=== PATIENT | male | born 1975 | race Two or more races ===

== ENCOUNTER 2024-09-09 06:38 | Emergency (ER) | payer MEDICAID, SELFPAY ==
[2024-09-09 06:39] VITALS: BMI 26.6
[2024-09-09 07:14] VITALS: BP 137/89; PULSE 88; RESP 17; TEMP 36.9; O2SAT 97
--- NOTE | 2024-09-09 07:35 | PD.EDEPIST ---
ED Epistaxis RME/HPI General Chief complaint: Epistaxis/Nasal Foreign Body Stated complaint: NOSE BLEED Time Seen by Provider: 09/09/24 07:17 Arrival date/time: 09/09/24 06:38 RME / HPI RME / HPI Narrative: 49-year-old male patient presents emergency department with complaint of left side epistaxis for the past 2 days. Patient denies history of similar. Patient admits to tobacco use. Patient denies any trauma. Patient denies headache patient denies high blood pressure. Epistaxis improved with pressure applied to his nostril. Related Data Home Medications ?Medication ?Instructions ?Recorded ?Confirmed No Known Home Medications 03/18/19 03/18/19 Allergies Allergy/AdvReac Type Severity Reaction Status Date / Time No Known Allergies Allergy Verified 09/09/24 06:40 Review of Systems Review of Systems Systems Reviewed: All systems reviewed, normal except as documented Constitutional Constitutional: Reports system reviewed and no additional complaints, except as documented ENT Ears, Nose, Mouth, and Throat: Reports system reviewed and no additional complaints, except as documented Cardiovascular Cardiovascular: Reports system reviewed and no additional complaints, except as documented Respiratory Respiratory: Reports system reviewed and no additional complaints, except as documented Gastrointestinal Gastrointestinal: Reports system reviewed and no additional complaints, except as documented Genitourinary Genitourinary: Reports system reviewed and no additional complaints, except as documented Musculoskeletal Musculoskeletal: Reports system reviewed and no additional complaints, except as documented Neurologic Neurologic: Reports system reviewed and no additional complaints, except as documented Psychiatric Psychiatric: Reports system reviewed and no additional complaints, except as documented ED Exam General General appearance: Present alert and in no apparent distress Head Head exam: Present atraumatic and normocephalic ENT ENT exam: Present normal exam and normal oropharynx Expanded ENT Exam Nose exam: Present other (bleeding from left nostril); Absent sinus tenderness, nasal deviation or crepitus Respiratory Respiratory exam: Present normal lung sounds bilaterally Cardiovascular Cardiovascular exam: Present regular rate and normal rhythm Extremities Exam Extremities exam: Present normal inspection Neurological Exam Neurological exam: Present alert and oriented X3 Course Quality Measures none Orders Category Date Time Status CBC Stat Lab 09/09/24 07:45 Completed CMP [Comprehensive Metabolic Panel] Stat Lab 09/09/24 07:45 Completed Lipase Stat Lab 09/09/24 07:45 Completed PT [Prothrombin Time with INR] Stat Lab 09/09/24 07:45 Completed Oxymetazoline [place] 0.05% [Afrin Nasal [place]] Med 09/09/24 07:34 Discontinued See Dose Instructions NASAL X1 ONE Vital Signs Vital signs: Vital Signs Temperature 98.4 F 09/09/24 07:14 Pulse Rate 88 09/09/24 07:14 Respiratory Rate 17 09/09/24 07:14 Blood Pressure 137/89 H 09/09/24 07:14 Pulse Oximetry (%) 97 09/09/24 07:14 Oxygen Delivery Method Room Air 09/09/24 07:14 Epistaxis MDM Narrative MDM Narrative:: 49-year-old patient presents emergency department with complaint of bleeding to the left nostril. Patient denies ever having nosebleeds. Attest to tobacco use. Blood work negative for anemia needing transfusion. PT is within normal limit. Patient data External records reviewed:: None Clinical information provided by:: patient Social determinants that could affect healthcare access:: none Patient has the following chronic illnesses:: na How is presenting disease/condition affected by chronic disease/condition?: no chronic disease Evaluation data The following diagnostics were reviewed and interpreted by me:: lab results Lab and/or radiology exams considered but not ordered:: Lab considered and ordered Interpretation Summary: Unremarkable lab Medications / Prescriptions Medications or Prescriptions considered but not ordered:: Afrin considered and ordered Medication administrations:: Medication Administration History Discontinued Medications Oxymetazoline HCl (Oxymetazoline [place] 0.05% 15 Ml Btl) 0 spray NASAL X1 ONE Stop: 09/09/24 07:35 Last Admin: 09/09/24 08:11 Dose: 2 spray Documented By: DO Per above Consultations Consultation(s) initiated? (list below): No Diagnosis Epistaxis Differential Diagnosis: nasal bone fracture, anterior epistaxis and posterior epistaxis Most likely diagnosis given after review of the tests above:: Anterior epistaxis Admission Indicated Admission indicated?: not indicated Admission Request Was there a request for admission?: No Disposition Plan Disposition Plan: Discharge Discharge Attestation Discharge Attestation: The patient and all family members were given an opportunity to ask questions and understood the discharge instructions. Discharge instructions specifically effects, indications for sooner follow up or return to the emergency department, and the expected course of current diagnosis. Patient condition: Stable Discharge Plan Plan Patient Disposition: HOME (Self Care) Prescriptions/Referrals Prescriptions/Med Rec: No Action No Known Home Medications Referrals: Herman Kat MD [Primary Care Provider] - In 1 week Problem List Clinical Impression: Epistaxis Patient/Caregiver Discharge Instructions Education Materials: ED Epistaxis (Adult) Print Language: Czech Stand Alone Forms: [facility] Award Info., Patient Portal Info Letter
[2024-09-09] MEDS: OXYMETAZOLINE NAS SPRY 0.05% 15 ML BTL NASAL (08:11)
[2024-09-09 08:14] LABS: Basophils # (Auto) 0.1 Thou/mm3 (0.0-0.2); Basophils % (Auto) 1 % (0-2.5); Eosinophils # (Auto) 0.1 Thou/mm3 (0.0-0.5); Eosinophils % (Auto) 1 % (0-10); Hematocrit 36.9 % (41.0-53.0); Hemoglobin 12.6 g/dL (13.5-16.0); Immature Granulocytes % (Auto) 0 % (0-0); Immature Granulocytes Auto 0.04 Thou/mm3 (0.00-0.00); Lymphocytes # (Auto) 1.8 Thou/mm3 (1.0-4.8); Lymphocytes % (Auto) 18 % (10-50); Mean Corpuscular HGB Conc 34.1 g/dl (31.0-37.0); Mean Corpuscular Hemoglobin 30.5 pg (25.0-35.0); Mean Corpuscular Volume 89 fL (80-100); Monocytes # (Auto) 0.9 Thou/mm3 (0.0-0.8); Monocytes % (Auto) 9 % (0-12); Neutrophils # (Auto) 7.1 Thou/mm3 (1.8-7.7); Neutrophils % (Auto) 71 % (37-80); Nucleated Red Blood Cell % 0 /100 WBC (0); Platelet Count 412 Thou/mm3 (140-440); RDW Standard Deviation 42.9 fL (35.1-43.9); Red Blood Count 4.13 Miln/mm3 (4.50-5.90)
[2024-09-09 08:15] LABS: Alanine Aminotransferase 25 U/L (10-49); Albumin, Serum 4.3 gm/dL (3.5-5.0); Albumin/Globulin Ratio 1.7 (1.2-2.2); Alkaline Phosphatase 83 U/L (46-116); Anion Gap 6 (7-16); Aspartate Amino Transferase 33 U/L (0-34); BUN/Creatinine Ratio 18 Ratio (12-20); Bilirubin,Total 0.2 mg/dL (0.3-1.2); Blood Urea Nitrogen 14 mg/dL (9-23); Calcium 9.2 mg/dL (8.3-10.6); Calcium (Corrected) 9.2 mg/dL (8.5-10.1); Carbon Dioxide 24.3 mMol/L (20.0-31.0); Chloride 107 mMol/L (98-107); Creatinine (Component) 0.8 mg/dL (0.6-1.3); Estimated Creatinine Clearance 100.8 mL/min (>60); Globulin 2.5 gm/dL (2.3-3.5); Glucose 118 mg/dL (74-106); Lipase 33 U/L (12-53); Osmolality,Calculated 275 (275-295); Potassium 4.3 mMol/L (3.4-5.1); Sodium 137 mMol/L (136-145); Total Protein 6.8 gm/dL (5.7-8.2); eGFR > 60 See Note
[2024-09-09 08:45] LABS: INR 0.9 (0.9-1.3); Prothrombin Time 10.1 Seconds (9.0-12.2)
== END 2024-09-09 10:14 | disposition home or self-care (01) ==
PROVIDERS: Physician Assistant; Emergency Provider Emergency Medicine; PCP Family Medicine
DX: R04.0 Epistaxis (principal)
CPT/HCPCS: 36415; 80053; 83690; 85025; 85610; 99283; A9270

== ENCOUNTER 2024-09-10 17:57 | Emergency (ER) | payer MEDICAID, SELFPAY ==
[2024-09-10 17:58] VITALS: BMI 26.6
[2024-09-10 18:10] VITALS: BP 135/98; PULSE 104; RESP 16; TEMP 36.8; O2SAT 99
--- NOTE | 2024-09-10 18:26 | EDNOTE_ITS ---
ED Epistaxis RME/HPI General Chief complaint: Epistaxis/Nasal Foreign Body Stated complaint: epitaxis Time Seen by Provider: 09/10/24 18:08 Source: patient Arrival date/time: 09/10/24 17:57 Mode of arrival: ambulatory Limitations: no limitations RME / HPI RME / HPI Narrative: Dr. Khan?s Main ED Evaluation: 49-year-old male with no significant medical history seen yesterday here in the emergency department for left-sided epistaxis returns today with same. Patient states yesterday he had blood drawn and was given Afrin. The epistaxis resolved and he went home. He states this morning he had a small amount of nosebleeding. That resolved and then after judaism she had some more nosebleeding which resolved. This evening he was watching football and got excited and now he has returned left-sided epistaxis. Patient has no history of liver disease, does not take anticoagulants. This is nonpulsatile bleeding. It is more dark blood and dripping to greater or lesser extent. No bleeding elsewhere. No history of bleeding disorders. Related Data Home Medications ?Medication ?Instructions ?Recorded ?Confirmed No Known Home Medications 03/18/19 03/18/19 Allergies Allergy/AdvReac Type Severity Reaction Status Date / Time No Known Allergies Allergy Verified 09/09/24 06:40 Review of Systems Review of Systems Systems Reviewed: All systems reviewed, normal except as documented Past Medical History Past Medical History CARDIAC: Negative Congestive Heart Failure RESPIRATORY: Negative Chronic Obstructive Pulmonary Disease (COPD) GENITOURINARY: Negative Renal Disease ENDOCRINE: Negative Diabetes Mellitus Type 1 or Diabetes Mellitus Type 2 Social History SMOKING STATUS: Current some day smoker SUBSTANCE USE: does not use ED Exam Narrative Physical exam: GENERAL APPEARANCE: alert and oriented x 4, well-developed, well-nourished, no acute distress VITALS: All vitals were reviewed and the pulse ox is 97% on room air, which is normal according to my interpretation. HEENT: Normocephalic, atraumatic; pupils equal, round, reactive to light; EOMI; mucous membranes pink, moist; oropharynx clear. The patient has minimal left- sided dripping dark red blood from the left nare. Patient brought a bucket and there is a significant amount of clotted blood there. NECK: Supple LUNGS: CTABL; no wheezes, no rales, no rhonchi HEART: Regular rate, regular rhythm; normal S1, S2; no murmurs ABDOMEN: non distended; normal BS; soft, no tenderness, no guarding, no rebound; no masses, no organomegaly, no hernia BACK: no CVA tenderness EXTREMITIES: atraumatic; no edema NEUROLOGIC: awake; alert and oriented x4; cranial nerves II-XII grossly intact; no focal sensory or motor deficits PSYCHIATRIC: appropriate mood and affect SKIN: warm, dry, normal color; no rashes General Limitations: Present no limitations Course Quality Measures none Orders Category Date Time Status cloNIDine HCL [Catapres] Med 09/10/24 18:25 Discontinued 0.1 mg PO X1 ONE Vital Signs Vital signs: Vital Signs Temperature 98.3 F 09/10/24 18:10 Pulse Rate 104 H 09/10/24 18:10 Respiratory Rate 16 09/10/24 18:10 Blood Pressure 135/98 H 09/10/24 18:10 Pulse Oximetry (%) 99 09/10/24 18:10 Oxygen Delivery Method Room Air 09/10/24 18:10 Epistaxis MDM Narrative MDM Narrative:: On exam The patient has minimal left-sided dripping dark red blood from the left nare. Patient brought a bucket and there is a significant amount of clotted blood there. Heart rate right and 100. Blood pressure 131/100. Patient is nondiaphoretic, no tachypnea, no distress. No signs of hypovolemic shock. I placed the nasal pincher. Will order 1 clonidine 0.1 mg for BP control, will reevaluate in half hour. 19:11 patient's blood pressure 130/95. Pinchers still in place. No active bleeding now. Will reevaluate at 19:30 19:29 after observation, the patient's epistaxis remains resolved. He is showing no signs of being hypovolemic or orthostatic. I given him advice regarding the Afrin that he has at home, epistaxis management. I have also given him strict return as well as follow-up instructions which he and voiced understanding to and agreement. Scribe Attestation: I, Monika Wesley, am scribing for and in the presence of Dr. Khan. Provider Notation: Although this document has been carefully reviewed, there may still be some phonetic and other typographical errors. These errors are purely grammatical due to imperfections in the software program and should not be construed in any way to compromise the substance of the patient's medical care during this visit. Patient data External records reviewed:: [facility] previous records Clinical information provided by:: patient Social determinants that could affect healthcare access:: none Patient has the following chronic illnesses:: None How is presenting disease/condition affected by chronic disease/condition?: uneffected by Evaluation data The following diagnostics were reviewed and interpreted by me:: other (specify) (None) Lab and/or radiology exams considered but not ordered:: None Interpretation Summary: None Medications / Prescriptions Medications or Prescriptions considered but not ordered:: None Medication administrations:: Medication Administration History Discontinued Medications Clonidine (Clonidine Hcl 0.1 Mg Tablet) 0.1 mg PO X1 ONE Stop: 09/10/24 18:26 Last Admin: 09/10/24 18:37 Dose: 0.1 mg Documented By: TM As above Consultations Consultation(s) initiated? (list below): No Diagnosis Epistaxis Differential Diagnosis: nasal bone fracture, anterior epistaxis and posterior epistaxis Most likely diagnosis given after review of the tests above:: Epistaxis Admission Indicated Admission indicated?: not indicated Admission Request Was there a request for admission?: No Disposition Plan Disposition Plan: Discharge Discharge Attestation Discharge Attestation: The patient and all family members were given an opportunity to ask questions and understood the discharge instructions. Discharge instructions specifically effects, indications for sooner follow up or return to the emergency department, and the expected course of current diagnosis. Patient condition: Stable Discharge Plan Plan Patient Disposition: HOME (Self Care) Disposition Comment: Stable for discharge Patient condition on transfer: Stable Prescriptions/Referrals Prescriptions/Med Rec: No Action No Known Home Medications Referrals: [facility] [Outside] - In 1 week No Primary/Family,Physician [Primary Care Provider] - In 1 week Problem List Clinical Impression: Epistaxis Patient/Caregiver Discharge Instructions Discharge Activity: activity as tolerated Education Materials: ED Epistaxis (Adult) Additional Instructions: You should follow-up with your primary care doctor or in the [facility] within the next several days. You should bring these papers along with you. You should be referred to an ear nose and throat doctor. Please return to the emergency department for any worsening or any further me dical problems. Print Language: Samoan Stand Alone Forms: Rosa Award Info., Patient Portal Info Letter
[2024-09-10 18:32] VITALS: BP 131/100; PULSE 99; RESP 18; TEMP 36.9; O2SAT 98
[2024-09-10 18:37] VITALS: BP 130/95; PULSE 98
[2024-09-10] MEDS: cloNIDine HCL 0.1 MG TABLET PO (18:37)
[2024-09-10 19:42] VITALS: BP 124/85; PULSE 83; RESP 15; O2SAT 97
== END 2024-09-10 19:44 | disposition home or self-care (01) ==
PROVIDERS: Emergency Provider Emergency Medicine
DX: R04.0 Epistaxis (principal)
CPT/HCPCS: 99282; A9270